=== PATIENT | male | born 2000 | race Caucasian/White ===

== ENCOUNTER 2022-10-19 23:11 | Emergency (ER) | payer OTHER ==
[2022-10-19 23:33] VITALS: BP 144/76; PULSE 76; RESP 20; TEMP 99.2
--- NOTE | 2022-10-20 01:17 | XR ---
EXAM: XR Left Hand Complete, 3 or More Views CLINICAL HISTORY: ITS.REASON XR Reason: pain r/o FB- glass: LAC TO LT MID METACARPALS TECHNIQUE: Frontal, lateral and oblique views of the left hand. COMPARISON: No relevant prior studies available. FINDINGS: Bones/joints: Unremarkable. No acute fracture. No dislocation. Soft tissues: Soft tissue swelling and mild skin defect/laceration on the dorsum of the hand. No obvious radiopaque foreign body visualized. There is slight heterogeneity in the area of soft tissue swelling/laceration just adjacent to the mid metacarpals on the lateral view. IMPRESSION: Slight heterogeneity in the area of soft tissue swelling/laceration just adjacent to the mid metacarpals on the lateral view. May relate to soft tissue injury versus very small foreign body. Correlate and could consider CT.
== END 2022-10-20 02:03 | disposition left against medical advice (07) ==
LOC: EC 23:11
DX: R22.32 Localized swelling, mass and lump, left upper limb (principal); Z53.21 Procedure and treatment not carried out due to patient leaving prior to being seen by health care provider
CPT/HCPCS: 99499